=== PATIENT | male | born 1950 | race Caucasian/White ===

== ENCOUNTER 2016-11-26 06:47 | Day surgery (SDC) | payer OTHER ==
[~2016-11-26] VITALS: Ht 180.3 cm; Wt 100.0 kg
[~2016-11-26 06:47] MED LIST: CHOL100015 PO; ITRA100C PO; MICA100V IVBOLUS; MULT-516 PO; OXYC5CAP4 PO; TRAM50TA2 PO; VITAMIN B12 PO
[2016-11-26] MEDS ORDERED: BUPIVACAINE/PF 0.5% ONE ×2 (07:06→08:10)
[2016-11-26] MEDS ORDERED: LACTATED RINGERS 1,000 ML IV SCH (07:40)
[2016-11-26 07:43] VITALS: BP 125/79
[2016-11-26] MEDS ORDERED: MIDAZOLAM 1 MG/ML, 2ML ONE (07:45)
[2016-11-26] MEDS ORDERED: FENTANYL PF 250 MCG/5ML ONE (07:46)
[2016-11-26] MEDS ORDERED: LIDOCAINE/PF 1%, 30ML ONE (08:10)
[2016-11-26] MEDS ORDERED: OXYcodone 5 MG/5 ML ORAL.SOL UDC PO PRN (09:30)
[2016-11-26] MEDS ORDERED: LABETALOL 5MG/ML, 20ML IV PRN (09:30)
[2016-11-26] MEDS ORDERED: FENTANYL PF 100 MCG/2ML IV PRN (09:30)
[2016-11-26] MEDS ORDERED: PROMETHAZINE 25 MG/ML, 1ML IV PRN (09:30)
[2016-11-26] MEDS ORDERED: ALBUTEROL/IPRATROPIUM 2.5MG/0.5MG, 3 ML NPPB PRN (09:30)
[2016-11-26] MEDS ORDERED: ACETAMINOPHEN 325 MG TABLET PO PRN (09:30)
[2016-11-26] MEDS ORDERED: MEPERIDINE/PF 25MG/0.5ML IVPush PRN (09:30)
[2016-11-26] MEDS ORDERED: hydrALAzine 20 MG/ML, 1ML IV PRN (09:30)
[2016-11-26] MEDS ORDERED: MIDAZOLAM 1 MG/ML, 2ML IV PRN (09:30)
[2016-11-26] MEDS ORDERED: HYDROmorphone 1 MG/ML, 1ML IV PRN (09:30)
[2016-11-26] MEDS ORDERED: ONDANSETRON 2MG/ML, 2ML IVPush PRN (09:30)
[2016-11-26] MEDS ORDERED: ROPIVACAINE IV ONE (10:00)
[2016-11-26] MEDS ORDERED: SODIUM CHLORIDE 0.9% IV ONE (10:00)
[2016-11-26] MEDS ORDERED: AMPHOTERICIN ONE (10:31)
[2016-11-26] MEDS ORDERED: ONDANSETRON 2MG/ML, 2ML ONE (11:02)
[2016-11-26] MEDS ORDERED: CEFAZOLIN 1,000 MG ONE (11:02)
[2016-11-26] MEDS ORDERED: PROPOFOL 10 MG/ML, 20ML ONE (11:02)
[2016-11-26] MEDS ORDERED: DEXAMETHASONE 4 MG/ML, 1ML ONE (11:02)
== END 2016-11-26 12:00 ==
LOC: OUT 06:47
PROVIDERS: ATTEND Orthopaedic Surgery Foot and Ankle Surgery
DX: S82.832K Other fracture of upper and lower end of left fibula, subsequent encounter for closed fracture with nonunion (principal); X58.XXXD Exposure to other specified factors, subsequent encounter; Z98.52 Vasectomy status
CPT/HCPCS: 27726; 73610; 76000; 87015; 87070; 87075; 87102; 87116; 87176; 87205; 87206; 93005; C1713; J0285; J0690; J1100; J2250; J2405; J2704; J2795; J3010; J3490; J7120